=== PATIENT | male | born 1955 | race Caucasian/White ===

== ENCOUNTER 2017-11-20 07:55 | Emergency (ER) | payer SELFPAY ==
[~2017-11-20] VITALS: Ht 182.9 cm; Wt 74.8 kg
[~2017-11-20 07:55] MED LIST: HYDR1TAB8 OP
--- OUTSIDE RECORDS SUMMARY | 2017-11-20 08:01 | XMS REPORT | Continuity of Care Document ---
Author Author [facility] [address] [facility] Organization [facility] [address] Address Unknown Phone Unavailable Allergies Active Description Code Type Severity Reaction Onset Reported/Identified Relationship to Patient Clinical Status Yes No Known Drug Allergies [id number] Drug Allergy Unknown N/A 04/19/2015 Medications There is no data. Problems Date Dx Coded Attending Type Code Diagnosis Diagnosed By 04/19/2015 Ot 378.53 04/19/2015 Ot 341.9 04/19/2015 MANOLO DOWNEY DO Ot 729.5 04/19/2015 MANOLO DOWNEY DO Ot 812.09 04/19/2015 MANOLO DOWNEY DO Ot E000.8 04/19/2015 MANOLO DOWNEY DO Ot E849.0 04/19/2015 MANOLO DOWNEY DO Ot E888.9 Procedures There is no data. Results There is no data. Encounters ACCT No. Visit Date/Time Discharge Status Pt. Type Provider Facility Loc./Unit Complaint [id number] 04/19/2015 00:33:00 04/19/2015 01:26:00 DIS Emergency MANOLO DOWNEY DO [facility] [address] ER [id number] 09/29/2010 10:02:00 Document Registration [id number] 09/22/2010 07:12:00 Document Registration
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
[2017-11-20 08:50] VITALS: BP 113/84
== END 2017-11-20 08:50 | disposition home or self-care (01) ==
LOC: EDUNIT# 07:55 → ER 07:58
DX: J11.1 Influenza due to unidentified influenza virus with other respiratory manifestations (principal); K40.90 Unilateral inguinal hernia, without obstruction or gangrene, not specified as recurrent; F17.200 Nicotine dependence, unspecified, uncomplicated; Z87.81 Personal history of (healed) traumatic fracture; Z90.89 Acquired absence of other organs
CPT/HCPCS: 99281

== ENCOUNTER 2023-03-13 01:23 | Emergency (ER) | payer MEDICARE ==
[~2023-03-13] VITALS: Ht 183 cm; Wt 80.4 kg
[2023-03-13 01:30] VITALS: BP 142/89
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
== END 2023-03-13 02:07 | disposition home or self-care (01) ==
LOC: EDUNIT# 01:23 → ER 01:26
DX: K91.871 Postprocedural hematoma of a digestive system organ or structure following other procedure (principal); F17.210 Nicotine dependence, cigarettes, uncomplicated; Z28.311 Partially vaccinated for COVID-19; Z98.890 Other specified postprocedural states
CPT/HCPCS: 99282